=== PATIENT | male | born 2000 | race Caucasian/White ===

== ENCOUNTER 2024-03-05 16:50 | Observation (INO) ==
--- NOTE | 2024-03-05 17:06 | Emergency Department Note ---
Impression & Plan Acute hyponatremia, Dizziness, Generalized weakness, Dehydration, Rhabdomyolysis ED Provider Note NAME: SAMEER GRANDA AGE: 24 SEX: M : 2000 ARRIVES VIA: Ambulance INFORMANT: Patient ED PROVIDER(S): Ricco Benson DO CHIEF COMPLAINT: Nausea and dehydration HPI: Patient is a 24-year-old male who read his first [employer] today from [place]. He notes that it was extremely hot and he got sick to his stomach. He did finish the race. Following finishing it he has been able to get fluids down but does not feel like he is keeping enough down as he is so nauseated. He admits to cramps in the legs which have been present since the race ended but they have improved and he has not had any for the past 20 minutes. He denies any headache or change in vision. No dizziness but admits to feeling very lightheaded. No dysuria urgency or frequency. No other exacerbating or remitting factors. No trauma. No chest pain or shortness of breath. ADDITIONAL HISTORY OBTAINED: Additional history obtained from significant other at bedside who notes that he did not drink any water once he got home and he was drinking very little during the race because he lost his water bottle. Chronic Medical/Social Conditions Affecting Care: Per HPI PAST MEDICAL HISTORY:See Below PAST SURGICAL HISTORY:See Below FAMILY HISTORY:See Below SOCIAL HISTORY:See Below HOME MEDICATIONS:See Below ALLERGIES:See Below VITALS:See Below PHYSICAL EXAMINATION: GENERAL: Sitting up in bed, alert, well appearing, well nourished, no distress, non-toxic EYE EXAM: normal conjunctiva. PERRL and EOM's intact. OROPHARYNX: no exudate, no erythema, lips, buccal mucosa, and tongue normal and mucous membranes are moist NECK: supple, no nuchal rigidity, no adenopathy, non-tender LUNGS: Clear to auscultation. Normal chest wall mechanics HEART: no murmurs, S1 normal and S2 normal ABDOMEN: abdomen soft, non-tender, normo-active bowel sounds, no masses, no rebound or guarding. BACK: Back is symmetrical on inspection and there is no deformity, no midline tenderness, no CVA tenderness. SKIN: no rashes and no bruising UPPER EXTREMITIES: upper extremities are grossly normal. LOWER EXTREMITIES: No pitting edema. NEURO EXAM: Normal sensorium, cranial nerves II-XII intact, normal speech, no weakness of arms, no weakness of legs. No drift. Finger to nose intact. Gross sensation intact. MEDICAL DECISION MAKING: Patient is a 24-year-old male who presents ER for above-stated complaint. IV was established blood work is obtained. Labs show mild leukocytosis of 15,000. No significant anemia. BMP with a hyponatremia at 121. This was discovered after the patient received a liter and a half of IV fluids. Mag was low at 1.4. Bili output 1.9. CK was elevated at 1600. Lipase was normal. Just prior to admission urine and serum osmole's resulted. Urine sodium was 16. Discussed case with the hospitalist prior to the results of these and patient was admitted for further workup. Please see their note for further details. Consults/Care Managements Discussions: Per [facility] Triage Nursing notes reviewed. Limited review of prior medical records performed Vital Signs: reviewed and remarkable for no significant abnormalities Differential diagnosis: Infection, dehydration, metabolic abnormality, hypo/hyperglycemia, electrolyte disturbance, anemia, hypoxia, cardiac sources, intracerebral event, toxicologic, neurologic, as well as other pathologies. ER treatment provided: See below Diagnostics interpreted by me include EKG and cardiac monitoring as listed below: -Cardiac Monitoring: An order was placed for continuous cardiac monitoring. The monitor shows a rate of 80 with sinus rhythm. -ECG: Sinus rhythm rate 80 Normal axis No PVCs QTc 4 3 -Laboratory studies:Interpreted by me as stated above in MDM and shown below. Imaging studies: Xrays: As interpreted by me: Portable AP upright 1 view the chest shows no focal infiltrate CTs show: none Procedures:none Critical Care: None Past Med/Surg History Problem List (Updated 03/05/24 @ 20:36 by Ricco Benson DO) Rhabdomyolysis (Acute) Dehydration (Acute) Acute hyponatremia (Acute) Generalized weakness (Acute) Dizziness (Acute) Social History Smoking Status: Unknown if ever smoked Allergies Allergies Allergy/AdvReac Type Severity Reaction Status Date / Time No Known Allergies Allergy Verified 03/05/24 18:26 Home Meds Home Medications Medication Instructions Recorded Confirmed ibuprofen 200 mg tablet (Advil) 400 mg PO Q6H PRN Pain 03/05/24 03/05/24 Results & Data (ED) Vital Signs Vital Signs - 24 hr 03/05/24 16:54 03/05/24 16:58 03/05/24 16:58 Temperature 36.5 C Temperature Source Oral Pulse Rate 86 Pulse Rate [Apical] 74 Pulse Rate from SpO2 Sensor Respiratory Rate 19 15 Respiratory Effort / Characteristics Non-Labored Spontaneous Non-Labored Spontaneous Respiratory Depth Normal Normal Respiratory Pattern Regular Regular Blood Pressure 120/80 Blood Pressure [Right Arm] 124/82 Blood Pressure Mean 93 Blood Pressure Mean [Right Arm] 96 Pulse Oximetry 99 97 97 Oxygen Delivery Method Room Air Room Air Room Air Sepsis Recent Fever Within 48 Hours No Sepsis New/Unexplained Change in Mental Status No Sepsis Action Taken by Nursing No Action Required 03/05/24 16:58 03/05/24 17:00 03/05/24 17:03 Temperature Temperature Source Pulse Rate 78 Pulse Rate [Apical] Pulse Rate from SpO2 Sensor Respiratory Rate Respiratory Effort / Characteristics Respiratory Depth Respiratory Pattern Blood Pressure 124/82 129/73 Blood Pressure [Right Arm] Blood Pressure Mean 88 79 Blood Pressure Mean [Right Arm] Pulse Oximetry Oxygen Delivery Method Sepsis Recent Fever Within 48 Hours Sepsis New/Unexplained Change in Mental Status Sepsis Action Taken by Nursing 03/05/24 17:03 03/05/24 17:12 03/05/24 17:15 Temperature Temperature Source Pulse Rate 76 81 Pulse Rate [Apical] Pulse Rate from SpO2 Sensor Respiratory Rate 17 15 Respiratory Effort / Characteristics Respiratory Depth Respiratory Pattern Blood Pressure 122/74 Blood Pressure [Right Arm] Blood Pressure Mean 99 Blood Pressure Mean [Right Arm] Pulse Oximetry Oxygen Delivery Method Sepsis Recent Fever Within 48 Hours Sepsis New/Unexplained Change in Mental Status Sepsis Action Taken by Nursing 03/05/24 17:15 03/05/24 17:22 03/05/24 17:30 Temperature Temperature Source Pulse Rate 90 Pulse Rate [Apical] Pulse Rate from SpO2 Sensor Respiratory Rate 20 Respiratory Effort / Characteristics Respiratory Depth Respiratory Pattern Blood Pressure 122/74 125/75 Blood Pressure [Right Arm] Blood Pressure Mean 99 95 Blood Pressure Mean [Right Arm] Pulse Oximetry 99 Oxygen Delivery Method Room Air Sepsis Recent Fever Within 48 Hours Sepsis New/Unexplained Change in Mental Status Sepsis Action Taken by Nursing 03/05/24 17:30 03/05/24 17:30 03/05/24 17:33 Temperature Temperature Source Pulse Rate 75 78 Pulse Rate [Apical] Pulse Rate from SpO2 Sensor Respiratory Rate 19 18 Respiratory Effort / Characteristics Respiratory Depth Respiratory Pattern Blood Pressure 125/75 Blood Pressure [Right Arm] Blood Pressure Mean 95 Blood Pressure Mean [Right Arm] Pulse Oximetry 98 Oxygen Delivery Method Sepsis Recent Fever Within 48 Hours Sepsis New/Unexplained Change in Mental Status Sepsis Action Taken by Nursing 03/05/24 17:45 03/05/24 18:00 03/05/24 18:00 Temperature Temperature Source Pulse Rate Pulse Rate [Apical] Pulse Rate from SpO2 Sensor Respiratory Rate Respiratory Effort / Characteristics Respiratory Depth Respiratory Pattern Blood Pressure 123/86 113/81 113/81 Blood Pressure [Right Arm] Blood Pressure Mean 90 101 101 Blood Pressure Mean [Right Arm] Pulse Oximetry Oxygen Delivery Method Sepsis Recent Fever Within 48 Hours Sepsis New/Unexplained Change in Mental Status Sepsis Action Taken by Nursing 03/05/24 18:00 03/05/24 18:00 03/05/24 18:00 Temperature Temperature Source Pulse Rate Pulse Rate [Apical] Pulse Rate from SpO2 Sensor Respiratory Rate Respiratory Effort / Characteristics Respiratory Depth Respiratory Pattern Blood Pressure 113/81 113/81 113/81 Blood Pressure [Right Arm] Blood Pressure Mean 101 101 101 Blood Pressure Mean [Right Arm] Pulse Oximetry Oxygen Delivery Method Sepsis Recent Fever Within 48 Hours Sepsis New/Unexplained Change in Mental Status Sepsis Action Taken by Nursing 03/05/24 18:00 03/05/24 18:06 03/05/24 18:15 Temperature Temperature Source Pulse Rate 83 88 Pulse Rate [Apical] Pulse Rate from SpO2 Sensor Respiratory Rate 13 19 Respiratory Effort / Characteristics Respiratory Depth Respiratory Pattern Blood Pressure 122/75 Blood Pressure [Right Arm] Blood Pressure Mean 93 Blood Pressure Mean [Right Arm] Pulse Oximetry Oxygen Delivery Method Sepsis Recent Fever Within 48 Hours Sepsis New/Unexplained Change in Mental Status Sepsis Action Taken by Nursing 03/05/24 18:18 03/05/24 18:42 03/05/24 18:45 Temperature Temperature Source Pulse Rate 76 80 Pulse Rate [Apical] Pulse Rate from SpO2 Sensor Respiratory Rate 13 15 Respiratory Effort / Characteristics Respiratory Depth Respiratory Pattern Blood Pressure 130/71 Blood Pressure [Right Arm] Blood Pressure Mean 96 Blood Pressure Mean [Right Arm] Pulse Oximetry 98 Oxygen Delivery Method Sepsis Recent Fever Within 48 Hours Sepsis New/Unexplained Change in Mental Status Sepsis Action Taken by Nursing 03/05/24 18:45 03/05/24 18:57 03/05/24 19:00 Temperature Temperature Source Pulse Rate 78 Pulse Rate [Apical] Pulse Rate from SpO2 Sensor 79 Respiratory Rate 15 Respiratory Effort / Characteristics Respiratory Depth Respiratory Pattern Blood Pressure 130/71 123/67 Blood Pressure [Right Arm] Blood Pressure Mean 96 100 Blood Pressure Mean [Right Arm] Pulse Oximetry 97 Oxygen Delivery Method Sepsis Recent Fever Within 48 Hours Sepsis New/Unexplained Change in Mental Status Sepsis Action Taken by Nursing 03/05/24 19:00 03/05/24 19:12 03/05/24 19:15 Temperature Temperature Source Pulse Rate 78 Pulse Rate [Apical] Pulse Rate from SpO2 Sensor 78 Respiratory Rate 14 Respiratory Effort / Characteristics Respiratory Depth Respiratory Pattern Blood Pressure 123/67 130/65 Blood Pressure [Right Arm] Blood Pressure Mean 100 90 Blood Pressure Mean [Right Arm] Pulse Oximetry 97 Oxygen Delivery Method Sepsis Recent Fever Within 48 Hours Sepsis New/Unexplained Change in Mental Status Sepsis Action Taken by Nursing 03/05/24 19:27 03/05/24 19:30 03/05/24 19:41 Temperature 36.6 C Temperature Source Oral Pulse Rate 71 Pulse Rate [Apical] Pulse Rate from SpO2 Sensor 71 Respiratory Rate 23 Respiratory Effort / Characteristics Respiratory Depth Respiratory Pattern Blood Pressure 112/60 Blood Pressure [Right Arm] Blood Pressure Mean 79 Blood Pressure Mean [Right Arm] Pulse Oximetry 95 Oxygen Delivery Method Sepsis Recent Fever Within 48 Hours Sepsis New/Unexplained Change in Mental Status Sepsis Action Taken by Nursing 03/05/24 19:45 03/05/24 19:54 03/05/24 20:00 Temperature Temperature Source Pulse Rate 74 Pulse Rate [Apical] Pulse Rate from SpO2 Sensor 73 Respiratory Rate 13 Respiratory Effort / Characteristics Respiratory Depth Respiratory Pattern Blood Pressure 130/62 117/62 Blood Pressure [Right Arm] Blood Pressure Mean 96 85 Blood Pressure Mean [Right Arm] Pulse Oximetry 96 Oxygen Delivery Method Sepsis Recent Fever Within 48 Hours Sepsis New/Unexplained Change in Mental Status Sepsis Action Taken by Nursing 03/05/24 20:00 03/05/24 20:00 03/05/24 20:15 Temperature Temperature Source Pulse Rate 72 Pulse Rate [Apical] Pulse Rate from SpO2 Sensor 72 Respiratory Rate 15 Respiratory Effort / Characteristics Respiratory Depth Respiratory Pattern Blood Pressure 117/62 125/51 L Blood Pressure [Right Arm] Blood Pressure Mean 85 81 Blood Pressure Mean [Right Arm] Pulse Oximetry 94 Oxygen Delivery Method Sepsis Recent Fever Within 48 Hours Sepsis New/Unexplained Change in Mental Status Sepsis Action Taken by Nursing Laboratory Data 03/05/24 16:55 03/05/24 16:55 Lab Results 03/05/24 03/05/24 Range/Units 16:55 18:15 WBC 15.81 H (4.8-10.8) K/ul RBC 4.55 L (4.70-6.10) M/uL Hgb 14.0 (14.0-18.0) g/dl Hct 38.0 L (42.0-52.0) % MCV 83.5 (80.0-100.0) fL MCH 30.8 (25.0-34.0) pg MCHC 36.8 H (32.0-36.0) g/dL RDW Std Deviation 34.9 L (36.4-46.3) fL RDW Coeff of [place] 11.5 (11.5-14.5) % Plt Count 195 (130-400) K/uL MPV 9.4 (9.4-12.4) fL Immature Gran % (Auto) 0.7 % Neut % (Auto) 70.8 % Lymph % (Auto) 17.3 % [place] % (Auto) 10.8 % Eos % (Auto) 0.1 % Baso % (Auto) 0.3 % Neut # (Auto) 11.21 H (1.40-6.50) K/uL Lymph # (Auto) 2.73 (1.20-3.40) K/uL [place] # (Auto) 1.71 H (0.11-0.59) K/uL Eos # (Auto) 0.01 (0.00-0.50) K/uL Baso # (Auto) 0.04 (0.00-0.20) K/uL Immature Gran # (Auto) 0.11 (0.01-0.20) K/uL Sodium 121 L (136-145) mmol/L Potassium 3.6 (3.5-5.1) mmol/L Chloride 84 L (98-107) mmol/L Carbon Dioxide 26 (21-32) mmol/L Anion Gap 11 (3-11) BUN 16 (6-23) mg/dl Creatinine 1.02 (0.6-1.4) mg/dl Est Cr Clr Drug Dosing 116.9 ml/min Est GFR ( Amer) 117.0 ml/min Est GFR (Non-Af Amer) 101.0 ml/min BUN/Creatinine Ratio 15.7 (10-20) Glucose 115 H (70-99(Fasting)) mg/dl Osmolality 252 L (280-300) mOsm/kg Calcium 9.4 (8.6-10.3) mg/dl Magnesium 1.4 L (1.7-2.4) mg/dl Total Bilirubin 1.9 H (0.2-1.0) mg/dl AST 50 H (13-39) U/L ALT 18 (7-52) U/L Alkaline Phosphatase 40 (34-104) U/L Total Creatine Kinase 1623 H (30-223) U/L Total Protein 6.4 (6.0-8.3) gm/dl Albumin 4.2 (3.4-5.0) gm/dl Globulin 2.2 L (2.5-4.0) gm/dl Albumin/Globulin Ratio 1.9 (0.9-2) Lipase 35 (11-82) U/L Urine Color Yellow Urine Appearance Clear (Clear) Urine pH 7.5 (4.5-7.5) Ur Specific [place] 1.005 (1.000-1.030) Urine Protein Negative (Negative) Urine Glucose (UA) Negative (Negative) Urine Ketones Trace H (Negative) Urine Blood Negative (Negative) Urine Nitrite Negative (Negative) Urine Bilirubin Negative (Negative) Urine Urobilinogen Negative (Negative) Ur Leukocyte Esterase Negative (Negative) Urine Osmolality 123 L (500-800) mOsm/kg Ur Random Sodium 16 mmol/L Administered Medications Discontinued Medications Parenteral Electrolytes (Plasma-Lyte A Ph 7.4) 2,000 mls @ 999 mls/hr IV .Q2H1M ONE Stop: 03/05/24 19:03 Last Infusion: 03/05/24 19:39 Dose: Infused Documented By: [facility] Admin: 03/05/24 17:19 Dose: 999 mls/hr Documented By: Imaging Data Radiologist's Impression: Chest X-Ray 03/05/24 17:08 XR chest 1V portable CLINICAL HISTORY: dizzy COMPARISON STUDY: No previous studies for comparison. FINDINGS: Lung volumes are normal. Lungs are clear. There is no pneumothorax or pleural effusion. Cardiac size is normal. Mediastinal contours are normal. There is no evidence for pulmonary edema. IMPRESSION: No acute cardiopulmonary findings. ACT 112: Negative or not required by law. Electronically signed by: Cleve Cruz M.D. 03/05/2024 5:41 PM Discharge Plan Visit Data Chief Complaint: Dizziness ED Provider: Ricco Benson Discharge Problem: Acute hyponatremia, Dizziness, Generalized weakness, Dehydration, Rhabdomyolysis Forms Stand Alone Forms: [facility] Prescriptions Prescriptions: No Action ibuprofen [Advil] 200 mg Tablet 400 mg PO Q6H PRN (Reason: Pain) Referrals Referrals: PCP,NO [Primary Care Provider] - Discharge Problem: Rhabdomyolysis Qualifiers: Encounter type: initial encounter
[2024-03-05] MEDS: PLASMA-LYTE A 2,000 ML IV ONE (17:19)
[2024-03-05 17:20] LABS: Basophils # (auto) 0.04 K/uL (0.00-0.20); Basophils % (auto) 0.3 %; Eosinophils # (auto) 0.01 K/uL (0.00-0.50); Eosinophils % (auto) 0.1 %; Immature Granulocytes # (auto) 0.11 K/uL (0.01-0.20); Immature Granulocytes % (auto) 0.7 %; Lymphocytes # (auto) 2.73 K/uL (1.20-3.40); Lymphocytes % (auto) 17.3 %; Mean Corpuscular Hemoglobin 30.8 pg (25.0-34.0); Mean Corpuscular Hgb Conc 36.8 g/dL (32.0-36.0); Mean Corpuscular Volume 83.5 fL (80.0-100.0); Mean Platelet Volume 9.4 fL (9.4-12.4); Monocytes # (auto) 1.71 K/uL (0.11-0.59); Monocytes % (auto) 10.8 %; Neutrophils # (auto) 11.21 K/uL (1.40-6.50); Neutrophils % (auto) 70.8 %; Platelet Count 195 K/uL (130-400); RDW Coefficient of Variation 11.5 % (11.5-14.5); RDW Standard Deviation 34.9 fL (36.4-46.3); Red Blood Count 4.55 M/uL (4.70-6.10); White Blood Count 15.81 K/ul (4.8-10.8)
--- NOTE | 2024-03-05 17:42 | XRay Report ---
XR chest 1V portable CLINICAL HISTORY: dizzy COMPARISON STUDY: No previous studies for comparison. FINDINGS: Lung volumes are normal. Lungs are clear. There is no pneumothorax or pleural effusion. Car diac size is normal. Mediastinal contours are normal. There is no evidence for pulmonary edema. IMPRESSION: No acute cardiopulmonary findings. ACT 112: Negative or not required by law. Electronically signed by: Cleve Cruz M.D. 03/05/2024 5:41 PM
[2024-03-05 17:43] LABS: Albumin Globulin Ratio 1.9 (0.9-2); Albumin Level 4.2 gm/dl (3.4-5.0); BUN Creatinine Ratio 15.7 (10-20); Bilirubin,Total 1.9 mg/dl (0.2-1.0); Calcium 9.4 mg/dl (8.6-10.3); Creatinine Clr Calc Pharmacy 116.9 ml/min; Globulin 2.2 gm/dl (2.5-4.0); Potassium 3.6 mmol/L (3.5-5.1); Total Protein 6.4 gm/dl (6.0-8.3)
--- NOTE | 2024-03-05 18:02 | History & Physical Report ---
Date of Service March 05, 2024 Assessment & Plan (1) Acute hyponatremia: Plan: Admit to the PCU on telemetry, pulse oximetry, and seizure precautions Currently stable and without signs of seizure-like activity Presented to the ED via EMS from the [employer] competition due to acute onset of lightheadedness, dizziness, generalized weakness, and nausea shortly after finishing the [employer] race Noted to be dehydrated on exam with a sodium of 121, chloride of 84, total CK level of 1623 Hyponatremia workup including serum osmolality, urine osmolality, and urine sodium ordered in the ED are currently in process we will follow Patient is currently receiving 2 L LR ordered as a bolus, we will keep him strict n.p.o. until hyponatremia workup is back Seizure precautions have been ordered with as needed Ativan for seizure-like activity Will add mag level to initial labs in the ED Will start every 4 hour CMP, mag, Phos, PT/INR moving forward Monitor intake/output every 6 hours If any concerns for seizure-like activity will speak with ICU staff about higher level of care Bilateral SCDs for DVT prophylaxis AM CBC with trending CMP and electrolytes (2) Rhabdomyolysis: Plan: Initial CK level is 1623 Renal function and liver function are currently stable Patient just completed the [employer] competition approximately 3 hours ago Avoid both nephrotoxic and hepatotoxic agents at this time Will continue to monitor every 4 hours CMP, mag, Phos, PT/INR (3) Dizziness: Plan: Likely a combination of significant dehydration and acute hyponatremia Currently receiving the 2 L LR bolus ordered in the ED Seizure precautions have been ordered with as needed Ativan Will discuss further possible need for hypertonic saline with my attending Fall precautions have been ordered (4) Generalized weakness: Plan: Likely due to dehydration and acute metabolic derangements on admission Fall precautions ordered (5) Dehydration: Plan: Will continue IV hydration until metabolic derangement/stable Plan The patient was discussed with Dr. Bliss at the time of the admission History of Present Illness Chief Complaint: Dizziness, weakness S/P Triathlon Primary Care Provider: NO PCP Fernando is a 24-year-old male with no significant past medical history who presented to the [facility] ED via EMS after completing the local triathlon earlier today with complaints of generalized weakness, dizziness, and lightheadedness. He remained stable in the ED. Labs were significant for a leukocytosis of 15 with neutrophil predominance of 11, sodium of 121, chloride of 84, total bili of 1.9, AST of 50, ALT and alk phos within normal limits, total CK of 1623. Chest x-ray was read as negative for acute findings. Prior to admission the patient was started on an LR 2 L bolus. Patient was lying in bed in no acute distress at the time of exam with his girlfriend and her father bedside, history is obtained from all. The patient did give consent for his girlfriend and her father to be in the room with us while I obtained history and examined him. The patient competed in the [employer] competition earlier today, they confirmed this was his first ever [employer] competition. Initially after completing the race he felt well. They explained that approximate 10 minutes after finishing the race however he started develop lightheadedness, dizziness, and generalized weakness. He was taken to the medical tent at the race where he had an episode of nausea and dry heaves. When asked, he did state that he took 2, 200 mg ibuprofen tabs approximately [address] way through the race. He denies recent tobacco or alcohol use. When asked, he states that his symptoms have improved since arrival but have not completely resolved. States that if he is lying flat with his eyes closed he is feeling okay. Patient confirms that he is on no prescription medications and denied taking [id number] supplements. Please refer to Dr. Bliss's attestation for any changes to the treatment plan Allergies Allergy/AdvReac Type Severity Reaction Status Date / Time No Known Allergies Allergy Verified 03/05/24 18:26 Home Medications Medication Instructions Recorded Confirmed Type ibuprofen 200 mg tablet (Advil) 400 mg PO Q6H PRN Pain 03/05/24 03/05/24 History Past Med/Surg History Problem List (Updated 03/05/24 @ 20:36 by Ricco Benson DO) Rhabdomyolysis (Acute) Dehydration (Acute) Acute hyponatremia (Acute) Generalized weakness (Acute) Dizziness (Acute) Social History Smoking Status: Never smoker Second Hand Exposure: No; Do You Dip or Chew Tobacco: No; Hx Alcohol Use: Yes Hx Substance Use: No Preferred Language: Urdu Communication Ability: Effective Mini Shifter Required: No Beliefs That Will Affect Care: None Current Living Situation: Other Current Living Situation Comment: lives with roomates. Feels Safe at Home: Yes Assistive Devices: None Physical Exam Physical Exam: Physical Exam: General: In no acute distress, stated age, well-nourished, Appears dehydrated on exam HEENT: Normocephalic, atraumatic, no scleral icterus, pupils around round, symmetrical, and reactive to light, DRY mucus membranes, trachea midline, no thyromegaly Chest/Pulm: No respiratory distress, symmetrical chest expansion, clear josr th sounds throughout Cardiac: tachycardic rate, regular rhythm, no murmurs noted Abdomen: Negative for ascites and bruising, normoactive bowel sounds, soft, non-tender to palpation throughout Musculoskeletal: Symmetrical and without signs of acute trauma, upper and lower extremities with full ROM, no atrophy, spasticity, or flaccidity Extremities: Radial, dorsalis pedis, and posterior tibial pulses are intact and symmetrical, no edema noted in the BL LE's Skin: Warm, dry, no rashes , lesions, or scars noted Neuro: Alert and oriented to person, place, month, year, and president, no focal defects, CN II-XII tested and intact, no tremors noted Psych: No acute distress, calm and cooperative during the exam Results & Data Results & Data Vital Signs (Past 12 Hours) Vital Signs Temp Pulse Pulse Resp BP BP Pulse Ox 03/05/24 17:22 90 20 99 03/05/24 17:03 78 03/05/24 16:58 74 15 124/82 97 03/05/24 16:58 97 03/05/24 16:54 36.5 C 86 19 120/80 99 O2 Del Method 03/05/24 17:22 Room Air 03/05/24 17:03 03/05/24 16:58 Room Air 03/05/24 16:58 Room Air 03/05/24 16:54 Room Air Laboratory Results Abnormal lab results 03/05/24 Range/Units 16:55 WBC 15.81 H (4.8-10.8) K/ul RBC 4.55 L (4.70-6.10) M/uL Hct 38.0 L (42.0-52.0) % MCHC 36.8 H (32.0-36.0) g/dL RDW Std Deviation 34.9 L (36.4-46.3) fL Neut # (Auto) 11.21 H (1.40-6.50) K/uL [place] # (Auto) 1.71 H (0.11-0.59) K/uL Sodium 121 L (136-145) mmol/L Chloride 84 L (98-107) mmol/L Glucose 115 H (70-99(Fasting)) mg/dl Osmolality 252 L (280-300) mOsm/kg Total Bilirubin 1.9 H (0.2-1.0) mg/dl AST 50 H (13-39) U/L Total Creatine Kinase 1623 H (30-223) U/L Globulin 2.2 L (2.5-4.0) gm/dl Diagnostic Findings Chest X-Ray 03/05/24 17:08 XR chest 1V portable CLINICAL HISTORY: dizzy COMPARISON STUDY: No previous studies for comparison. FINDINGS: Lung volumes are normal. Lungs are clear. There is no pneumothorax or pleural effusion. Cardiac size is normal. Mediastinal contours are normal. There is no evidence for pulmonary edema. IMPRESSION: No acute cardiopulmonary findings. ACT 112: Negative or not required by law. Electronically signed by: Cleve Cruz M.D. 03/05/2024 5:41 PM ECG Additional Comments: Normal sinus rhythm Normal ECG Code Status & VTE Plan Code Status Full code VTE Prophylaxis Plan VTE Prophylaxis will be ordered: Yes Supervising Physician Co-Signing Physician Notes patient presents with acute hyponatremia, rhabdomyolysis , generalized weakness plan IV fluids supplement electrolytes diet as tolerated repeat BMP, Mg , CPK agree with above assessment and plan PG Care Time/CCT Total # of Minutes Spent Total Time Spent with Patient: Total time spent is greater than 50% in coordination of care (as documented) at patient's floor/unit and/or counseling patient: [place] [address] INT INP/OBS CARE 3/75MIN Patient Type New Medical Decision Making High Complexity Diagnoses Acute hyponatremia E87.1 Rhabdomyolysis M62.82 Dizziness R42 Generalized weakness R53.1 Dehydration E86.0
[2024-03-05] MEDS ORDERED: LORazepam 2 MG in SYRINGE 0.25 ML IV PRN (18:20)
[2024-03-05 18:33] LABS: Appearance Urine Clear (Clear); Bilirubin Urine Negative (Negative); Blood Urine Negative (Negative); Color Urine Yellow; Glucose Urine UA Negative (Negative); Ketones Urine Trace (Negative); Leukocyte Esterase Urine Negative (Negative); Nitrite Urine Negative (Negative); Protein Urine Negative (Negative); Specific Gravity Urine 1.005 (1.000-1.030); Urobilinogen Urine Negative (Negative); pH Urine 7.5 (4.5-7.5)
[2024-03-05 18:49] LABS: Magnesium 1.4 mg/dl (1.7-2.4)
[2024-03-05 21:03] LABS: Albumin Globulin Ratio 2.1 (0.9-2); Albumin Level 3.9 gm/dl (3.4-5.0); BUN Creatinine Ratio 14.8 (10-20); Bilirubin,Total 2.4 mg/dl (0.2-1.0); Calcium 8.3 mg/dl (8.6-10.3); Creatinine Clr Calc Pharmacy 147.2 ml/min; Est GFR (African American) 142.2 ml/min; Est GFR (Non-African American) 122.7 ml/min; Globulin 1.9 gm/dl (2.5-4.0); Magnesium 1.8 mg/dl (1.7-2.4); Phosphorus 4.8 mg/dl (2.5-4.9); Potassium 3.5 mmol/L (3.5-5.1); Total Protein 5.8 gm/dl (6.0-8.3)
[2024-03-05] MEDS: D5W AND NSS 1,000 ML IV SCH (22:04)
[2024-03-05 22:20] LABS: INR 1.2 (0.9-1.1); Prothrombin Time 12.8 Seconds (9.0-12.0)
[2024-03-06 03:39] VITALS: O2SAT 97
[2024-03-06 06:35] LABS: Basophils # (auto) 0.03 K/uL (0.00-0.20); Basophils % (auto) 0.4 %; Eosinophils # (auto) 0.05 K/uL (0.00-0.50); Eosinophils % (auto) 0.6 %; Hematocrit (blood only) 38.8 % (42.0-52.0); Hemoglobin 13.9 g/dl (14.0-18.0); Immature Granulocytes # (auto) 0.03 K/uL (0.01-0.20); Immature Granulocytes % (auto) 0.4 %; Lymphocytes # (auto) 2.28 K/uL (1.20-3.40); Lymphocytes % (auto) 27.8 %; Mean Corpuscular Hemoglobin 30.9 pg (25.0-34.0); Mean Corpuscular Hgb Conc 35.8 g/dL (32.0-36.0); Mean Corpuscular Volume 86.2 fL (80.0-100.0); Mean Platelet Volume 9.6 fL (9.4-12.4); Monocytes # (auto) 0.93 K/uL (0.11-0.59); Monocytes % (auto) 11.3 %; Neutrophils # (auto) 4.89 K/uL (1.40-6.50); Neutrophils % (auto) 59.5 %; Platelet Count 193 K/uL (130-400); RDW Coefficient of Variation 11.8 % (11.5-14.5); White Blood Count 8.21 K/ul (4.8-10.8)
[2024-03-06 07:29] LABS: Albumin Level 3.8 gm/dl (3.4-5.0); Bilirubin,Total 1.5 mg/dl (0.2-1.0); Calcium 8.1 mg/dl (8.6-10.3)
[2024-03-06 07:34] LABS: Albumin Globulin Ratio 1.9 (0.9-2); BUN Creatinine Ratio 14.6 (10-20); Creatinine Clr Calc Pharmacy 137.5 ml/min; Est GFR (African American) 141.5 ml/min; Total Protein 5.8 gm/dl (6.0-8.3)
[2024-03-06 08:33] VITALS: BP 116/67; PULSE 80; RESP 20; TEMP 97.7
--- NOTE | 2024-03-06 10:09 | Discharge Summary ---
Date of Service March 06, 2024 Admission HPI Per Admitting Provider Fernando is a 24-year-old male with no significant past medical history who presented to the [facility] ED via EMS after completing the local triathlon earlier today with complaints of generalized weakness, dizziness, and lightheadedness. He remained stable in the ED. Labs were significant for a leukocytosis of 15 with neutrophil predominance of 11, sodium of 121, chloride of 84, total bili of 1.9, AST of 50, ALT and alk phos within normal limits, total CK of 1623. Chest x-ray was read as negative for acute findings. Prior to admission the patient was started on an LR 2 L bolus. Patient was lying in bed in no acute distress at the time of exam with his girlfriend and her father bedside, history is obtained from all. The patient did give consent for his girlfriend and her father to be in the room with us while I obtained history and examined him. The patient competed in the [employer] competition earlier today, they confirmed this was his first ever [employer] competition. Initially after completing the race he felt well. They explained that approximate 10 minutes after finishing the race however he started develop lightheadedness, dizziness, and generalized weakness. He was taken to the medical tent at the race where he had an episode of nausea and dry heaves. When asked, he did state that he took 2, 200 mg ibuprofen tabs approximately [address] way through the race. He denies recent tobacco or alcohol use. When asked, he states that his symptoms have improved since arrival but have not completely resolved. States that if he is lying flat with his eyes closed he is feeling okay. Patient confirms that he is on no prescription medications and denied taking [id number]-cljamty supplements. Please refer to Dr. Bliss's attestation for any changes to the treatment plan Principal Diagnosis Hypoosmolar hyponatremia, volume depletion, mild rhabdomyolysis Discharge Exam General-alert and oriented x3, no fever, no chills HEENT-head atraumatic and normocephalic, pupils equal and reactive to light, extraocular muscles intact Neck-no lymphadenopathy or thyromegaly, trachea midline Chest-clear to auscultation. No rales, wheezing or rhonchi Cardiac-regular rate and rhythm, normal S1 and S2 Abdomen-normal bowel sounds, no hepatosplenomegaly Extremities-no cyanosis, clubbing, or edema. Mild bilateral leg muscle tenderness from [employer] competition yesterday Neuro-cranial nerves II through XII intact, motor and sensory function within normal limits, strength symmetrical, no focal deficits Psych-normal affect, normal mood Discharge Data Allergies Allergy/AdvReac Type Severity Reaction Status Date / Time No Known Allergies Allergy Verified 03/05/24 18:26 Consultations 03/05/24 17:58 ED Decision to Admit Stat Hospital Course (1) Acute hyponatremia: Present on admission. Now resolved. Sodium normalized to 138 (2) Rhabdomyolysis: Mild on admission. CK down to 1278 today, March 06. Renal function normal. This will eventually normalize (3) Dizziness: Present on admission. Now resolved with IV fluids. (4) Generalized weakness: Likely due to dehydration and acute metabolic derangements on admission. Not unexpected after [employer] competition. Now resolved (5) Dehydration: Present on admission. Resolved with IV fluids Plan Home todayMarch 06 Total Time Total Time Spent Total Time Spent (In Minutes): 45 minutes Discharge Plan Discharge Items Patient Disposition: Home - Self-Care Reason For Visit: DIZZINESS, DEHYDRATION, HYPONATREMIA, ELEVATED CK Discharge Diagnosis: Volume depletion, mild rhabdomyolysis, hypoosmolar hyponatremia Activity: Resume your previous activity Non-emergency contact: Primary Care Provider Call non-emergency contact if: your symptoms worsen Follow-up/Referrals: PCP,NO [Primary Care Provider] - Diet: Regular Addtl Attending Provider Instructions: See primary care provider if your symptoms persist Pending Studies at Discharge: No Stand-Alone Forms: My [employer], Smoking Cessation Medications and DC Order Prescriptions: Continued ibuprofen [Advil] 200 mg Tablet 400 mg PO Q6H PRN (Reason: Pain) Discharge Orders: Discharge Order (Routine); Ordered 03/06/24 Ordered By: Slick Shankar Admission Data Admit Date/Time: 03/05/24 18:17 Attending Provider: Slick Shankar Admit Provider: Iesha Bliss Primary Care Provider: PCP,NO Other Providers: Iesha Bliss Coding Level of Care Code 21027 INP/OBS DISCH >30 MIN Diagnoses Acute hyponatremia E87.1 Rhabdomyolysis M62.82 Encounter type: initial encounter Dizziness R42 Generalized weakness R53.1 Dehydration E86.0
--- NOTE | 2024-03-07 05:58 | Electrocardiogram Report ---
Test Reason : Blood Pressure : / mmHG Vent. Rate : 080 BPM Atrial Rate : 080 BPM P-R Int : 162 ms QRS Dur : 090 ms QT Int : 350 ms P-R-T Axes : 066 067 044 degrees QTc Int : 403 ms Normal sinus rhythm ST elevation, consider early repolarization, pericarditis, or injury No previous ECGs available Confirmed by Anthony Rudolph ([id number]) on 03/07/2024 5:58:03 AM Referred By: Confirmed By:Anthony Rudolph
== END 2024-03-06 11:00 | disposition home or self-care (01) | DRG 641 ==
LOC: ED 16:50 → INTOOBSV 18:17 → 2E 18:17 → SUATTDRO 18:17 → 2E 20:41